=== PATIENT | female | born 1965 ===

== ENCOUNTER 2017-02-24 05:41 | Day surgery (SDC) | payer OTHER ==
[~2017-02-24] VITALS: Ht 157.5 cm; Wt 77.1 kg
[2017-02-24] VITALS (12 sets, daily range): BP systolic 97–137; BP diastolic 63–95
[~2017-02-24 05:41] MED LIST: ATORVASTATIN CA40 MG ORAL; LISINOPRIL5 MG ORAL; LORAZEPAM1 MG ORAL; [UNRECOGNIZED DRUG - OTHER] PO
[2017-02-24] MEDS ORDERED: ceFAZolin 1gm in D5W 55ml IVP ONE (06:00)
[2017-02-24] MEDS ORDERED: celeBREX 200mg Cap **SURGERY PATIENTS ONLY ORAL ONE ×2 (06:00→06:31)
[2017-02-24] MEDS ORDERED: oxyCONTIN 20mg tab ORAL ONE (06:00)
[2017-02-24] MEDS ORDERED: Ropivacaine 5mg/ml Vial 20ml INJ ONE (06:17)
[2017-02-24] MEDS ORDERED: LR 1000ml 1,000 ML IV SCH (06:20)
[2017-02-24] MEDS ORDERED: LR 1000ml 1,000 ML IVLG SCH (06:51)
--- NOTE | 2017-02-24 06:51 | Anethesia Preoperative Eval ---
Anesthesia Pre-op PMH/ROS General Date of Evaluation: Feb 24, 2017 Time of Evaluation: 07:56 Anesthesiologist: Brody ASA Score: ASA 3 Mallampati Score Class I : Soft palate, uvula, fauces, pillars visible Class II: Soft palate, uvula, fauces visible Class III: Soft palate, base of uvula visible Class IV: Only hard plate visible Mallampati Classification: Class II Surgeon: Gigi Diagnosis: L Shoulder Pain Surgical Procedure: L Shoulder Arthroscopy Anesthesia History: none Family History: no anesthesia problems Allergies: Coded Allergies: No Known Allergies (Unverified , 02/23/17) Medications: see eMAR Past Medical History Cardiovascular: Reports: HTN, other - HL Pulmonary: Reports: other - Bronchitis Other: obesity - BMI 32 PSxH Narrative: Hemorrhoidectomy, L ovarian Cyst SX Anesthesia Pre-op Phys. Exam Physician Exam Last Vital Signs Date Time Temp Pulse Resp B/P Pulse Ox O2 Delivery O2 Flow Rate FiO2 02/24/17 06:15 98.1 63 20 137/85 99 Room Air Constitutional: NAD Neurologic: CN 2-12 intact Cardiovascular: RRR Respiratory: CTA Gastrointestinal: S/NT/ND Airway Exam Mallampati Score: Class II MO: full ROM: limited Teeth: intact Anesthesia Pre-op A/P Labs Urine Test Test 02/24/17 06:00 Urine HCG, Qualitative Negative Risk Assessment & Plan Assessment: ASA 3 Plan: GA, BIS, L Supraclavicular Block Status Change Before Surgery: No Pre-Antibiotics Dru Grams Ancef Iv Given Within 1 Hr of Incision: Yes Time Given: 08:16 Thompson Skinner MD Feb 24, 2017 06:51
[2017-02-24] MEDS ORDERED: Oxycodone/Acetaminophen 5-325 ORAL PRN (07:00)
[2017-02-24] MEDS ORDERED: Norco 5mg/325mg tab ORAL PRN ×2 (07:00→08:00)
[2017-02-24] MEDS ORDERED: Ketorolac 60mg Inj IV PRN (07:00)
[2017-02-24] MEDS ORDERED: LORazepam Inj 2mg/ml 1ml IV PRN (07:00)
[2017-02-24] MEDS ORDERED: Midazolam 2mg/2ml Inj IVP PRN (07:00)
[2017-02-24] MEDS ORDERED: Hydromorphone 0.5mg/0.5ml inj IVP PRN (07:00)
[2017-02-24] MEDS ORDERED: Norco 7.5mg/325mg tab ORAL PRN (07:00)
[2017-02-24] MEDS ORDERED: Ketorolac 30mg Inj IV PRN (07:00)
[2017-02-24] MEDS ORDERED: Meperidine 25mg/0.5ml Inj IV PRN (07:00)
[2017-02-24] MEDS ORDERED: fentaNYL 100 mcg/2 mL IV PRN (07:00)
[2017-02-24] MEDS ORDERED: Metoclopramide 10mg/2ml Inj IVP PRN (07:00)
[2017-02-24] MEDS ORDERED: Atropine Inj 1mg/10ml Syr IV PRN (07:00)
[2017-02-24] MEDS ORDERED: DiphenhydrAMINE 50mg/ml Inj IVP PRN (07:00)
[2017-02-24] MEDS ORDERED: Bupivacaine w/Epi 0.25% 30ml Vial INJ ONE (07:02)
[2017-02-24] MEDS ORDERED: EPINEPHrine 1mg/1ml Amp ONE (07:02)
--- NOTE | 2017-02-24 07:53 | Pre-Procedure Note/Attestation ---
Pre-Procedure Note/Attestation Complete Prior to Procedure Planned Procedure: left Procedure Narrative: shoulder arthroscopy, sad, possible rc repair Indications for Procedure Pre-Operative Diagnosis: left shoulder impingement, possible rct Attestation I attest that I discussed the nature of the procedure; its benefits; risks and complications; and alternatives (and the risks and benefits of such alternatives ), prior to the procedure, with the patient (or the patient's legal manufacturers service representative). I attest that, if there was a reasonable possibility of needing a blood transfusion, the patient (or the patient's legal manufacturers service representative) was given the [facility] standardized written summary, pursuant to the [place] Blood Safety Act ([place] Health and Safety Code # 1645, as amended). I attest that I re-evaluated the patient just prior to the surgery and that there has been no change in the patient's H&P, except as documented below: DREW FLORES Feb 24, 2017 07:53
--- NOTE | 2017-02-24 07:54 | Operative Note - PDOC ---
Operative Note Operative Note Pre-op Diagnosis: left shoulder impingement, possible rct Procedure: see op report Post-op Diagnosis: same as pre-op plus Anesthesia: general Specimen: none Complications: none Condition: stable Estimated Blood Loss: none Implant(s) used?: No DREW FLORES Feb 24, 2017 07:54
[2017-02-24] MEDS ORDERED: HYDROmorphone 1mg/ml Carpuject SUBQ PRN (08:00)
[2017-02-24] MEDS ORDERED: Propofol 10mg/ml 20ml IV ONE (08:00)
[2017-02-24] MEDS ORDERED: Tylenol #3 tab (300mg/30mg) ORAL PRN (08:00)
[2017-02-24] MEDS ORDERED: Alfentanil 2ml Inj ONE (08:00)
[2017-02-24] MEDS ORDERED: Lidocaine 1% MPF 10mg/ml 5ml ONE (08:00)
[2017-02-24] MEDS ORDERED: LR 1000ml ONE (08:00)
[2017-02-24] MEDS ORDERED: NS Irrig 1000ml ONE (08:00)
[2017-02-24] MEDS ORDERED: D5 1/2NS 1,000 ML IV SCH (08:00)
[2017-02-24] MEDS ORDERED: Midazolam 2mg/2ml Inj ONE (08:00)
--- NOTE | 2017-02-24 09:20 | Immediate Post-Op Evaluation ---
Immediate Post-Op Evalulation Immediate Post-Op Evalulation Procedure: L Shoulder Arthroscopy Date of Evaluation: Feb 24, 2017 Time of Evaluation: 09:28 IV Fluids: 800 LR Blood Products: 0 Estimated Blood Loss: 8 Urinary Output: 0 Blood Pressure Systolic: 105 Blood Pressure Diastolic: 65 Pulse Rate: 65 Respiratory Rate: 16 O2 Sat by Pulse Oximetry: 100 Temperature (Fahrenheit): 97.6 Pain Score (1-10): 0 Nausea: No Vomiting: No Complications 0 Patient Status: awake, reacts, patent, extubated, none Hydration Status: adequate Dru Grams Ancef IV Given Within 1 Hr of Incision: Yes Time Given: 08:16 Thompson Skinner MD Feb 24, 2017 09:20
--- NOTE | 2017-02-24 09:21 | 48 Hour Post Anesthesia Eval ---
Post Anesthesia Evaluation Procedure: L Shoulder Arthroscopy Date of Evaluation: Feb 24, 2017 Time of Evaluation: 11:34 Blood Pressure Systolic: 132 0: 76 Pulse Rate: 67 Respiratory Rate: 18 Temperature (Fahrenheit): 98.2 O2 Sat by Pulse Oximetry: 99 Airway: patent Nausea: No Vomiting: No Pain Intensity: 1 Hydration Status: adequate Cardiopulmonary Status: Stable Mental Status/LOC: patient returned to baseline Follow-up Care/Observations: 0 Post-Anesthesia Complications: 0 Follow-up care needed: ready to discharge Thompson Skinner MD Feb 24, 2017 09:21
--- NOTE | 2017-02-27 09:45 | Operative Note - Dictated ---
DATE OF OPERATION: 02/24/2017 PREOPERATIVE DIAGNOSES: 1. Left shoulder traumatic impingement syndrome. 2. Left shoulder partial rotater cuff tear. POSTOPERATIVE DIAGNOSES: 1. Left shoulder traumatic impingement syndrome. 2. Left shoulder partial rotater cuff tear. PROCEDURE: 1. Left shoulder arthroscopy diagnostic arthroscopy. 2. Left shoulder subacromial decompression bursectomy and release of the ca ligament. SURGEON: Grant Yu M.D. ANESTHESIA: Interscalene with general. Indication For Procedure: The patient is a pleasant female, who had chronic left shoulder pain. She had MRI, which showed possible tendinosis versus tear of the rotator cuff and had evidence of impingement syndrome clinically. After failed a conservative treatment, we elected to undergo a left shoulder diagnostic arthroscopy with possible rotator cuff tear and subacromial decompression bursectomy. The risks, limitations, expectations, and complications of procedure were discussed in detail. All questions were addressed. Description Of Procedure: An informed consent was obtained. The patient was taken to the operative room and placed under general anesthesia, Interscalene anesthesia as well. The patient was then carefully placed in beachchair. Ancef was administered. Time-out was performed. Left shoulder was prepped and draped in a sterile manner. Posterior lateral skin incision was then made . Diagnostic arthroscopy was performed. There is no chondral damage. Anterior labral was in intact along with the superior labrum and the biceps tendon appeared to be intact. There was a partial tear of the supraspinatus that seem like it was less than 50% width of the rotator cuff. The camera was then repositioned in the subacromial space. There was significant acromial bone spur. The under subacromial spur was identified, acromioplasty was started from lateral to medial comparing posterior anterior. Once that was done, hypertrophic bursal tissue, which was source of her symptoms were then completely removed and all the way to the posterior aspect of the shoulder. Once bursectomy and acromioplasty was completed, the site of the rotator cuff was evaluated and noted to be intact. At this point, the instruments removed. Portal sites were closed with 3-0 Monocryl sutures. Steri-Strips and a sterile dressing were applied. The patient was awoken and taken to recovery room with stable vital signs. ESTIMATED BLOOD LOSS: None. COMPLICATIONS: None. SPECIMENS: None. IMPLANTS: None. Grant Yu M.D. DR: NEVILLE JOB#: [id number] CC: DONOVAN
== END 2017-02-24 12:00 | disposition home or self-care (01) ==
LOC: SUR 05:41
DX: M75.42 Impingement syndrome of left shoulder (principal); S46.012A Strain of muscle(s) and tendon(s) of the rotator cuff of left shoulder, initial encounter; V43.62XA Car passenger injured in collision with other type car in traffic accident, initial encounter; Y92.410 Unspecified street and highway as the place of occurrence of the external cause; Y99.9 Unspecified external cause status; I10 Essential (primary) hypertension; E78.00 Pure hypercholesterolemia, unspecified; E66.9 Obesity, unspecified; Z68.32 Body mass index [BMI] 32.0-32.9, adult; D64.9 Anemia, unspecified; I27.2 Other secondary pulmonary hypertension; J40 Bronchitis, not specified as acute or chronic; Z90.721 Acquired absence of ovaries, unilateral
CPT/HCPCS: 29822; 81025; J0171; J0690; J2250; J2704; J2765; J2795; J3490; J7120; 94003; 94150